=== PATIENT | female | born 1950 | race Caucasian/White ===

== ENCOUNTER → 2019-02-10 | Outpatient (CLI) | payer MEDICARE, OTHER ==
[~2019-02-10] MED LIST: Z.0.PREMARIN0.625 MG PO
--- NOTE | 2019-02-10 17:45 | Diagnostic Imaging Report ---
EXAM: CT Abdomen and Pelvis WITHOUT intravenous contrast INDICATION: Abdominal pain, concern for renal calculi or diverticulitis. COMPARISON: None. TECHNIQUE: Abdomen and pelvis were scanned utilizing a multidetector helical scanner from the lung base to the pubic symphysis without administration of IV contrast. Coronal and sagittal reformations were obtained. IV CONTRAST: None ORAL CONTRAST: None COMPLICATIONS: None RADIATION DOSE: Total DLP: 843.9 mGy*cm Dose modulation, iterative reconstruction, and/or weight based adjustment of the mA/kV was utilized to reduce the radiation dose to as low as reasonably achievable. FINDINGS: LOWER THORAX: No focal consolidation. Scattered subcentimeter calcified granulomas. Bilateral lower lobe predominant subpleural reticulation and subpleural cystic changes consistent with interstitial fibrosis. The heart is not enlarged. No pericardial effusion. HEPATOBILIARY: Hypoattenuation of liver parenchyma consistent with hepatic steatosis. No focal liver lesions. Status post cholecystectomy. SPLEEN: Several calcified granulomas in the nonenlarged spleen. PANCREAS: No focal masses or ductal dilatation. ADRENALS: No adrenal nodules. KIDNEYS/URETERS: No hydronephrosis, stones, or solid mass lesions. PELVIC ORGANS/BLADDER: Obscured by beam hardening artifact related to bilateral total hip replacement. PERITONEUM / RETROPERITONEUM: No free air or fluid. LYMPH NODES: No lymphadenopathy. VESSELS: Scattered atherosclerotic calcifications of the nonaneurysmal abdominal aorta and major branches. GI TRACT: There is distal esophageal wall thickening with internal calcifications and a small hiatal hernia. BONES AND SOFT TISSUES: Mild colonic diverticulosis with no CT evidence of diverticulitis. No bowel obstruction. No abnormal bowel wall thickening. Normal appendix. IMPRESSION: No renal calculi. Diverticulosis with no CT evidence of diverticulitis. Distal esophageal wall thickening with internal calcifications and small hiatal hernia. Recommend further evaluation with endoscopy. Hepatic steatosis. Findings of mild interstitial fibrosis at the lung bases. Signed by: Sandhya Arshad MD on 02/10/2019 5:41 PM
== END ==
LOC: CT 16:27
PROVIDERS: ATTEND Family Medicine
DX: R10.32 Left lower quadrant pain (principal); K57.90 Diverticulosis of intestine, part unspecified, without perforation or abscess without bleeding
CPT/HCPCS: 74176